=== PATIENT | female | born 1965 | race Caucasian/White ===

== ENCOUNTER 2018-02-14 20:08 | Emergency (ER) | payer BC, OTHER ==
[~2018-02-14] VITALS: Ht 162.6 cm; Wt 81.6 kg
[2018-02-14] MEDS ORDERED: ASPIRIN 325 MG TAB PO ONE (20:30)
[2018-02-14] MEDS ORDERED: MORPHINE SULFATE 5 MG/ML VIAL IV ONE (20:30)
== END 2018-02-14 23:20 | disposition home or self-care (01) ==
LOC: FSED 20:08
DX: R07.89 Other chest pain (principal); K21.9 Gastro-esophageal reflux disease without esophagitis
CPT/HCPCS: 93005 ×2; 99284; J2270

== ENCOUNTER 2024-09-01 19:27 | Emergency (ER) | payer BC, OTHER ==
[~2024-09-01] VITALS: Ht 162.6 cm; Wt 88.0 kg
[2024-09-01 20:15] VITALS: PULSE 91; RESP 18; TEMP 98
[2024-09-01 22:28] VITALS: BP 127/76; PULSE 91; RESP 18; TEMP 98; O2SAT 95
== END 2024-09-01 22:28 | disposition home or self-care (01) ==
LOC: FSED 20:23
DX: S50.12XA Contusion of left forearm, initial encounter (principal); W01.0XXA Fall on same level from slipping, tripping and stumbling without subsequent striking against object, initial encounter; Y93.01 Activity, walking, marching and hiking; Y92.89 Other specified places as the place of occurrence of the external cause
CPT/HCPCS: 99282